=== PATIENT | male | born 1995 | race Caucasian/White ===

== ENCOUNTER 2017-02-23 11:09 | Emergency (ER) | payer SELFPAY ==
--- NOTE | 2017-02-23 14:14 | Emergency Department Report ---
Abscess Boil HPI - HPI Chief Complaint: Skin/Abscess/Foreign Body Stated Complaint: CYST LEFT AC AREA Time Seen by Provider: 02/23/17 13:18 Duration: 4 Days Location: Upper Extremity Severity: Mild History: No Fever, No Pain, No Purulent Drainage, No Numbness, No Foreign Body, No Previous History, No Insect Bite HPI: This is a 21-year-old male nontoxic, well nourished in appearance, no acute signs of distress presents to the ED complaining of left upper arm boil x4 days. Mother is currently present at bedside and stated on Thursday the boil started to drain with yellow pus discharge. Patient denies any numbness, tingling, fever, chills, nausea, vomiting, chest pain or shortness of breath. He denies any trauma to the extremity. Patient states he is unaware of the last tetanus receipt. Denies any allergies or past medical history. Home Medications: Previous Rx's Medication Instructions Recorded Last Taken Type Acetaminophen/Codeine [Tylenol #3] 1 tab PO Q6H PRN #10 tab 05/24/15 Unknown Rx Amoxicillin [Trimox CAP] 500 mg PO Q8H #30 capsule 05/24/15 Unknown Rx Valacyclovir HCl [Valtrex] 2,000 mg PO Q12H #4 tab 05/24/15 Unknown Rx Sulfamethoxazole/Trimethoprim 1 each PO BID #14 tablet 02/23/17 Unknown Rx [Bactrim DS TAB] Allergies/Adverse Reactions: Allergies Allergy/AdvReac Type Severity Reaction Status Date / Time No Known Allergies Allergy Verified 02/23/17 11:19 ED Review of Systems ROS: Stated complaint: CYST LEFT AC AREA Other details as noted in HPI Constitutional: denies: chills, fever Eyes: denies: eye pain, eye discharge, vision change ENT: denies: ear pain, throat pain Respiratory: denies: cough, shortness of breath, wheezing Cardiovascular: denies: chest pain, palpitations Endocrine: no symptoms reported Gastrointestinal: denies: abdominal pain, nausea, diarrhea Genitourinary: denies: urgency, dysuria Musculoskeletal: denies: back pain, joint swelling, arthralgia Skin: denies: rash, lesions Neurological: denies: headache, weakness, paresthesias Psychiatric: denies: anxiety, depression Hematological/Lymphatic: denies: easy bleeding, easy bruising ED Past Medical Hx - Past Medical History Previous Medical History?: No Additional medical history: bells palsy - Surgical History Past Surgical History?: No - Social History Smoking Status: Never Smoker Substance Use Type: None - Medications Home Medications: Home Medications Medication Instructions Recorded Confirmed Last Taken Type Acetaminophen/Codeine [Tylenol #3] 1 tab PO Q6H PRN #10 tab 05/24/15 Unknown Rx Amoxicillin [Trimox CAP] 500 mg PO Q8H #30 capsule 05/24/15 Unknown Rx Valacyclovir HCl [Valtrex] 2,000 mg PO Q12H #4 tab 05/24/15 Unknown Rx Sulfamethoxazole/Trimethoprim 1 each PO BID #14 tablet 02/23/17 Unknown Rx [Bactrim DS TAB] ED Abscess Boil Physical Exam - Exam General: Vital signs noted. No distress. Alert and acting appropriately. Front/Back of Body, Lg (Color): 1 - abscess Size: 1 cm Exam: Yes Fluctuance, Yes Normal Neurologic Exam, Yes Normal Circulation, No Tenderness, No Surrounding Cellulites/Erythema, No Lymphangitis, No Crepitation , No Heart Murmur Exam: GENERAL: The patient is a well-developed, well-nourished female in no apparent distress. Patient is alert and acting appropriately for age. Alert and oriented 3, no apparent distress, normal gait, atraumatic. HEENT: Head is normocephalic and atraumatic. PERRL, Extraocular muscles are intact. Pupils are equal, round, and reactive to light and accommodation. Nares appeared normal. Mouth is well hydrated and without lesions. Mucous membranes are moist. Posterior pharynx clear of any exudate or lesions. Mouth is well hydrated and without lesions. Tonsils not erythematous or swollen. Uvula midline. Tongue elevated. Mucous members are moist. Posterior pharynx clear, no exudate or lesions. Patent airways. . NECK: Supple. No carotid bruits. No lymphadenopathy or thyromegaly.nontender. No meningitic signs are noted. . LUNGS: Clear to auscultation. Non labor breathing. No intercostal retractions. Symmetrical with respiration, no wheezing, no rales, or crackles. . HEART: Regular rate and rhythm without murmur, rubs or gallops. No reproducible. S1, S2 present, regular rate and rhythm without murmur, no rubs, no gallops. . ABDOMEN: Soft, nontender, and nondistended. Positive bowel sounds. No hepatosplenomegaly was noted. No guarding or rebound tenderness, negative epigastric bruit. Negative psoas sign, negative casillas sign, negative McBurneys sign. . EXTREMITIES: Without any cyanosis, clubbing, rash, lesions or edema. Peripheral pulses intact. Capillary refill less than 2 seconds. Full range of motion bilaterally. . NEUROLOGIC: Cranial nerves II through XII are grossly intact. Alert and oriented x 3. Normal gait. Symmetrical strength and sensation. Reflexes 2+ throughout. Cerebellar testing normal. GCS score of 15. . PSYCHIATRIC: Normal affect with no suicidal or homicidal ideations. Skin: One centimeter abscess to the left upper extremity. Positive induration and fluctuance. Normal range of motion. No joint swelling or or cellulitis is noted. No pus or drainage. I & D Note - I & D Note I & D Note: Under sterile field, I used Betadine to cleanse the area. I then used 2% lidocaine with epi 1-200,000 with 25-gauge 5/8 needle to inject area for anesthetic purposes. Total volume injected 1 mL. I then used an 11 blade to make a 1 cm incision. About 2 mL's of purulent drainage has been noted. I then used a hemostat to break the abscess formation. I then used sterile 0.9% normal saline flush to flush the wound with total volume of 40 mL used. I then put a 1/4 iodoform packing to the incision. A sterile 4 x 4 with tape has been applied as dressing. Bleeding is under control. Patient tolerated the procedure well with no signs of distress noted. ED Course Vital Signs 02/23/17 11:19 Temperature 97.8 F Pulse Rate 60 Respiratory 16 Rate Blood Pressure 117/79 O2 Sat by Pulse 100 Oximetry - Reevaluation(s) Reevaluation #1: 02/23/17 14:14 Patient speaking in full sentences with no signs of distress noted. Critical care attestation.: If time is entered above; I have spent that time in minutes in the direct care of this critically ill patient, excluding procedure time. ED Disposition Clinical Impression: Abscess, Encounter for incision and drainage procedure Disposition: TO HOME OR SELFCARE Is pt being admited?: No Does the pt Need Aspirin: No Condition: Stable Instructions: Abscess (ED), Sulfamethoxazole/Trimethoprim (By mouth), Ibuprofen (By mouth), Abscess Incision and Drainage (ED) Additional Instructions: Follow-up with your primary care doctor 3-5 days or if symptoms worsen or continue with gentle emergency room as well as possible. Return to emergency room in 2 days for packing removal and reassessment of the abscess. Take full course of antibiotics was prescribed. Prescriptions: Sulfamethoxazole/Trimethoprim [Bactrim DS TAB] 1 each PO BID #14 tablet Referrals: PRIMARY CAREMD [Primary Care Provider] - 3-5 Days BREANNA FERREIRA MD [Staff Physician] - 3-5 Days [facility] [Outside] - 3-[address] [facility] [place] [Outside] - 3-5 Days Forms: Work/School Release Form(ED)
[2017-02-23] MEDS ORDERED: XYLOCAINE 2%/ EPI 1:200,000 INFILTRATI ONE (14:19)
[2017-02-23] MEDS ORDERED: BOOSTRIX IM ONE (14:22)
[2017-02-23 15:30] VITALS: BP 136/89
== END 2017-02-23 15:29 | disposition home or self-care (01) ==
LOC: ED 11:09
DX: L02.414 Cutaneous abscess of left upper limb (principal)
CPT/HCPCS: 90471; 90715; 99282

== ENCOUNTER 2017-02-26 09:28 | Emergency (ER) | payer SELFPAY ==
[2017-02-26 09:35] VITALS: BP 106/69
--- NOTE | 2017-02-26 12:58 | Emergency Department Report ---
- General Chief Complaint: Laceration/Recheck/Suture Stated Complaint: PACKING REMOVED IN LEFT ARM Time Seen by Provider: 02/26/17 12:21 Source: patient Mode of arrival: Ambulatory Limitations: No Limitations - History of Present Illness Initial Comments: This is a 21-year-old male that presents with packing removal of the left AC arm region. Patient that he received a incision and drainage 3 days ago and was told to return for packing removal. Patient stated he is currently taking antibiotics. Patient denies any pus, drainage, numbness, drooling, or worsening symptoms. Patient. Swelling has significantly subsided. Patient denies any allergies. Denies past medical history. -: Gradual, days(s) (3) Extremity Location: Left: Forearm 1 - Packing removal Patient Tetanus UTD: Yes Associated Symptoms: none. denies: pain, loss of feeling/numbness, suspect foreign body present, unable to move injured part, weakness followed by dizziness, nausea/vomiting, fever - Related Data Previous Rx's Medication Instructions Recorded Last Taken Type Acetaminophen/Codeine [Tylenol #3] 1 tab PO Q6H PRN #10 tab 05/24/15 Unknown Rx Amoxicillin [Trimox CAP] 500 mg PO Q8H #30 capsule 05/24/15 Unknown Rx Valacyclovir HCl [Valtrex] 2,000 mg PO Q12H #4 tab 05/24/15 Unknown Rx Sulfamethoxazole/Trimethoprim 1 each PO BID #14 tablet 02/23/17 Unknown Rx [Bactrim DS TAB] Allergies Allergy/AdvReac Type Severity Reaction Status Date / Time No Known Allergies Allergy Verified 02/23/17 11:19 ED Review of Systems ROS: Stated complaint: PACKING REMOVED IN LEFT ARM Other details as noted in HPI Constitutional: denies: chills, fever Eyes: denies: eye pain, eye discharge, vision change ENT: denies: ear pain, throat pain Respiratory: denies: cough, shortness of breath, wheezing Cardiovascular: denies: chest pain, palpitations Endocrine: no symptoms reported Gastrointestinal: denies: abdominal pain, nausea, diarrhea Genitourinary: denies: urgency, dysuria Musculoskeletal: denies: back pain, joint swelling, arthralgia Skin: denies: rash, lesions Neurological: denies: headache, weakness, paresthesias Psychiatric: denies: anxiety, depression Hematological/Lymphatic: denies: easy bleeding, easy bruising ED Past Medical Hx - Past Medical History Previous Medical History?: No Additional medical history: bells palsy - Surgical History Past Surgical History?: No - Social History Smoking Status: Never Smoker Substance Use Type: None - Medications Home Medications: Home Medications Medication Instructions Recorded Confirmed Last Taken Type Acetaminophen/Codeine [Tylenol #3] 1 tab PO Q6H PRN #10 tab 05/24/15 Unknown Rx Amoxicillin [Trimox CAP] 500 mg PO Q8H #30 capsule 05/24/15 Unknown Rx Valacyclovir HCl [Valtrex] 2,000 mg PO Q12H #4 tab 05/24/15 Unknown Rx Sulfamethoxazole/Trimethoprim 1 each PO BID #14 tablet 02/23/17 Unknown Rx [Bactrim DS TAB] ED Physical Exam - General Limitations: No Limitations General appearance: alert, in no apparent distress - Head Head exam: Present: atraumatic, normocephalic, normal inspection - Eye Eye exam: Present: normal appearance, PERRL, EOMI. Absent: scleral icterus, conjunctival injection, nystagmus, periorbital swelling, periorbital tenderness Pupils: Present: normal accommodation - ENT ENT exam: Present: normal exam, normal orophraynx, mucous membranes moist, TM's normal bilaterally, normal external ear exam - Neck Neck exam: Present: normal inspection, full ROM. Absent: tenderness, meningismus, lymphadenopathy, thyromegaly - Respiratory Respiratory exam: Present: normal lung sounds bilaterally. Absent: respiratory distress, wheezes, rales, rhonchi, stridor, chest wall tenderness, accessory muscle use, decreased breath sounds, prolonged expiratory - Cardiovascular Cardiovascular Exam: Present: regular rate, normal rhythm. Absent: systolic murmur, diastolic murmur, rubs, gallop - GI/Abdominal GI/Abdominal exam: Present: soft, normal bowel sounds - Rectal Rectal exam: Present: deferred - Extremities Exam Extremities exam: Present: normal inspection, full ROM, normal capillary refill. Absent: tenderness, pedal edema, joint swelling, calf tenderness - Expanded Upper Extremity Exam Left General: Present: normal inspection Shoulder Exam: Present: normal inspection, full ROM Upper Arm exam: Present: normal inspection, full ROM, other (1 cm open wound with packing. Normal healing process. No induration or flutance noted. No pus or drainage noted.). Absent: tenderness, swelling, abrasion, laceration, ecchymosis, deformity, crepidus, dislocation, erythema Elbow exam: Present: normal inspection, full ROM Forearm Wrist exam: Present: normal inspection, full ROM Hand Wrist exam: Present: normal inspection, full ROM Neuro motor exam: Present: wrist extension intact, thumb opposition intact, thumb IP flexion intact, thumb adduction intact, fingers 2-5 abduction intact Neurosensory exam: Present: 2-point discrimination, radial nerve intact, ulnar nerve intact, median nerve intact Vascular: Present: vascular compromise, normal capillary refill, radial pulse, brachial pulse, ulnar pulse - Back Exam Back exam: Present: normal inspection, full ROM. Absent: tenderness, CVA tenderness (R), CVA tenderness (L), muscle spasm, paraspinal tenderness, vertebral tenderness, rash noted - Neurological Exam Neurological exam: Present: alert, oriented X3, CN II-XII intact, normal gait, reflexes normal - Psychiatric Psychiatric exam: Present: normal affect, normal mood - Skin Skin exam: Present: warm, dry, intact, normal color. Absent: rash ED Course Vital Signs 02/26/17 09:34 Temperature 98.3 F Pulse Rate 65 Respiratory 18 Rate Blood Pressure 106/69 O2 Sat by Pulse 100 Oximetry - Reevaluation(s) Reevaluation #1: 02/26/17 12:57 Patient is speaking in full sentences with no signs of distress noted. Critical care attestation.: If time is entered above; I have spent that time in minutes in the direct care of this critically ill patient, excluding procedure time. ED Disposition Clinical Impression: Abscess packing removal Disposition: DC-01 TO HOME OR SELFCARE Is pt being admited?: No Does the pt Need Aspirin: No Condition: Stable Instructions: Acute Wound Care (ED) Referrals: PRIMARY CARE, [Primary Care Provider] - 3-5 Days Forms: Work/School Release Form(ED)
== END 2017-02-26 13:21 | disposition home or self-care (01) ==
LOC: ED 09:28
DX: Z48.01 Encounter for change or removal of surgical wound dressing (principal)